=== PATIENT | female | born 1945 | race Caucasian/White ===

== ENCOUNTER → 2017-11-29 | Outpatient (CLI) | payer MEDICARE ==
[~2017-11-29] MED LIST: REGADENOSON 0.4 MG/5 ML SYRINGE ONE
== END | disposition home or self-care (01) ==
LOC: CFH 11:49
PROVIDERS: ATTEND Internal Medicine Cardiovascular Disease
DX: Z02.9 Encounter for administrative examinations, unspecified (principal)
CPT/HCPCS: J2785

== ENCOUNTER → 2017-12-01 | Outpatient (CLI) | payer MEDICARE | END | disposition home or self-care (01) | LOC: CFH 12:08 | PROVIDERS: ATTEND Internal Medicine Cardiovascular Disease | DX: I10 Essential (primary) hypertension (principal) | CPT/HCPCS: 78452; 93017; A9502; J2785 ==

== ENCOUNTER 2018-04-06 09:10 | Day surgery (SDC) | payer MEDICARE ==
[~2018-04-06] VITALS: Ht 165.1 cm; Wt 80.9 kg
[2018-04-06] MEDS ORDERED: SODIUM CHLORIDE 0.9% 1,000 ML IV ONE (09:41)
[2018-04-06] MEDS ORDERED: ACETYLCYSTEINE 600 MG CAPSULE PO STA (09:41)
[2018-04-06 09:53] VITALS: BP 175/84
[2018-04-06] MEDS ORDERED: ASPIRIN 325 MG TABLET EC PO ONE (10:00)
[2018-04-06] MEDS ORDERED: SODIUM BICARBONATE 8.4% 150 MEQ in DEXTROSE 5% 1,000 ML IV ONE (10:00)
[2018-04-06] MEDS ORDERED: ATOR40TA PO (10:14)
[2018-04-06] MEDS ORDERED: LEVO88TA4 PO (10:14)
[2018-04-06] MEDS ORDERED: ASPI-496 PO (10:14)
[2018-04-06] MEDS ORDERED: HYDR-3307 PO (10:14)
[2018-04-06] MEDS ORDERED: CALC1CAP8 PO (10:14)
[2018-04-06] MEDS ORDERED: UMEC62.5 IH (10:14)
[2018-04-06] MEDS ORDERED: GLIP5TAB10 PO (10:14)
[2018-04-06] MEDS ORDERED: ALLO100T30 PO (10:14)
[2018-04-06] MEDS ORDERED: ALBU1.25 NEB (10:14)
[2018-04-06] MEDS ORDERED: OMEP-110 PO (10:14)
[2018-04-06] MEDS ORDERED: GABA300C10 PO (10:14)
[2018-04-06] MEDS ORDERED: ALEN70TA5 PO (10:14)
[2018-04-06] MEDS ORDERED: LISI5TAB7 PO (10:14)
[2018-04-06] MEDS ORDERED: LORA10TA62 PO (10:14)
[2018-04-06] MEDS ORDERED: NITR0.6T4 SL (10:14)
[2018-04-06] MEDS ORDERED: CARV3.1212 PO (10:14)
[2018-04-06] MEDS ORDERED: ASPIRIN 325 MG TABLET EC ONE (10:32)
[2018-04-06] MEDS ORDERED: FENTANYL PF 100 MCG/2ML ONE (11:23)
[2018-04-06] MEDS ORDERED: MIDAZOLAM 1 MG/ML, 5ML ONE (11:23)
[2018-04-06] MEDS ORDERED: TICAGRELOR 90 MG TABLET ONE (11:23)
[2018-04-06] MEDS ORDERED: VERAPAMIL 2.5 MG/ML, 2ML ONE (11:23)
[2018-04-06] MEDS ORDERED: BIVALIRUDIN 250 MG ONE (11:23)
[2018-04-06] MEDS ORDERED: LIDOCAINE 1%, 50ML ONE (11:24)
[2018-04-06] MEDS ORDERED: HEPARIN 1,000 UNITS/ML, 10ML ONE (11:24)
[2018-04-06] MEDS ORDERED: SODIUM CHLORIDE 0.9% 1,000 ML IV SCH (12:18)
== END 2018-04-06 14:33 | disposition home or self-care (01) ==
LOC: CACL 09:10
PROVIDERS: ATTEND Internal Medicine Cardiovascular Disease
DX: I25.118 Atherosclerotic heart disease of native coronary artery with other forms of angina pectoris (principal); I10 Essential (primary) hypertension; J44.9 Chronic obstructive pulmonary disease, unspecified; Z87.891 Personal history of nicotine dependence; Z88.6 Allergy status to analgesic agent; Z88.5 Allergy status to narcotic agent
CPT/HCPCS: 71046; 93458; 99156; C1769; C1894; J1644; J2250; J3010; J3490; J7070; Q9967; J0583

== ENCOUNTER → 2018-04-21 | Outpatient (CLI) | payer MEDICARE ==
[~2018-04-21] MED LIST changes: +ALBU1.25 NEB; +ALEN70TA5 PO; +ALLO100T30 PO; +ASPI-496 PO; +ATOR40TA PO; +CALC1CAP8 PO; +CARV3.1212 PO; +GABA300C10 PO; +GLIP5TAB10 PO; +HYDR-3307 PO; +LEVO88TA4 PO; +LISI5TAB7 PO; +LORA10TA62 PO; +NITR0.6T4 SL; +OMEP-110 PO; -REGADENOSON 0.4 MG/5 ML SYRINGE ONE; +UMEC62.5 IH
== END | disposition home or self-care (01) ==
LOC: CVU 09:38
PROVIDERS: ATTEND Internal Medicine Cardiovascular Disease
DX: M79.662 Pain in left lower leg (principal); R60.9 Edema, unspecified; Z88.5 Allergy status to narcotic agent
CPT/HCPCS: 93970

== ENCOUNTER 2018-06-16 10:37 | Observation (INO) | payer MEDICARE ==
[2018-06-14 12:51] LABS: BASOPHILS # (AUTO) 0.03 x10^3/uL (0-0.1); BASOPHILS % (AUTO) 0 % (0-1); EOSINOPHILS # (AUTO) 0.22 x10^3/uL (0-0.4); EOSINOPHILS % (AUTO) 2 % (1-7); LYMPHOCYTES # (AUTO) 2.37 x10^3/uL (1-3.4); LYMPHOCYTES % (AUTO) 24 % (22-44); MD NO; MEAN CORPUSCULAR HEMOGLOBIN 33.2 pg (27.0-34.8); MEAN CORPUSCULAR HGB CONC 33.8 g/dL (32.4-35.8); MEAN CORPUSCULAR VOLUME 98.2 fL (80-100); MEAN PLATELET VOLUME 8.7 fL (7.4-10.4); MONOCYTES # (AUTO) 0.67 x10^3/uL (0.2-0.8); MONOCYTES % (AUTO) 7 % (2-9); NEUTROPHILS # (AUTO) 6.62 x10^3/uL (1.8-6.8); NEUTROPHILS % (AUTO) 67 % (42-75); PLATELET COUNT 274 x10^3/uL (130-400); RED BLOOD COUNT 3.93 x10^6/uL (3.82-5.3)
[2018-06-14 13:37] LABS: ANION GAP 10 mmol/L (5-15); CALCIUM 8.7 mg/dL (8.5-10.1); CHLORIDE 104 mmol/L (98-107)
[2018-06-14 13:38] LABS: CREATININE 1.64 mg/dL (0.55-1.02)
[~2018-06-16] VITALS: Ht 165.1 cm; Wt 85.7 kg
[~2018-06-16 10:37] MED LIST changes: +CHOL200024 PO
[2018-06-16 11:52] VITALS: BP 165/77
[2018-06-16] MEDS: SODIUM CHLORIDE 0.9% 1,000 ML IV SCH (11:57)
[2018-06-16] MEDS ORDERED: FENTANYL PF 100 MCG/2ML ONE ×2 (13:17→16:23)
[2018-06-16] MEDS ORDERED: PROTAMINE SULFATE 10 MG/ML, 25ML ONE (13:18)
[2018-06-16] MEDS ORDERED: MIDAZOLAM 1 MG/ML, 5ML ONE (13:18)
[2018-06-16] MEDS ORDERED: FLUMAZENIL 0.1 MG/1 ML, 5ML ONE (13:18)
[2018-06-16] MEDS ORDERED: NALOXONE 1 MG/ML, 2ML ONE (13:18)
[2018-06-16] MEDS ORDERED: NITROGLYCERIN 5 MG/ML, 10ML ONE (13:18)
[2018-06-16] MEDS ORDERED: HEPARIN 1,000 UNITS/ML, 10ML ONE (13:18)
[2018-06-16] MEDS ORDERED: CLOPIDOGREL 300 MG TABLET ONE (15:17)
[2018-06-16] MEDS ORDERED: HYDROcodone/APAP 10/325 MG TABLET ONE (16:29)
[2018-06-16] MEDS ORDERED: HYDROcodone/APAP 10/325 MG TABLET PO ONE (16:30)
[2018-06-16] MEDS ORDERED: FENTANYL PF 100 MCG/2ML IV ONE (16:30)
[2018-06-16] MEDS ORDERED: ALBUTEROL SULFATE 2.5 MG/3 ML NPPB PRN (20:00)
[2018-06-16] MEDS ORDERED: NITROGLYCERIN 0.4 MG BOTTLE (25 TABS) SL PRN (20:00)
[2018-06-16] MEDS ORDERED: HYDROcodone/APAP 10/325 MG TABLET PO PRN (20:00)
[2018-06-16] MEDS ORDERED: ALBUTEROL SULFATE 2.5 MG/3 ML NPPB SCH (20:00)
[2018-06-16] MEDS ORDERED: HYDROcodone/APAP 10/325 MG TABLET PO SCH (21:00)
[2018-06-16] MEDS: ATORVASTATIN 40 MG TABLET PO SCH (22:15)
[2018-06-16] MEDS: GABAPENTIN 300 MG CAPSULE PO SCH (22:15)
[2018-06-17 00:14] VITALS: BP 142/59
[2018-06-17 05:09] LABS: ANION GAP 8 mmol/L (5-15); CHLORIDE 107 mmol/L (98-107)
[2018-06-17 05:10] LABS: CREATININE 1.07 mg/dL (0.55-1.02)
[2018-06-17 05:16] LABS: BASOPHILS # (AUTO) 0.03 x10^3/uL (0-0.1); BASOPHILS % (AUTO) 0 % (0-1); EOSINOPHILS # (AUTO) 0.25 x10^3/uL (0-0.4); EOSINOPHILS % (AUTO) 3 % (1-7); LYMPHOCYTES # (AUTO) 2.19 x10^3/uL (1-3.4); LYMPHOCYTES % (AUTO) 30 % (22-44); MD NO; MEAN CORPUSCULAR HEMOGLOBIN 33.6 pg (27.0-34.8); MEAN CORPUSCULAR HGB CONC 34.4 g/dL (32.4-35.8); MEAN CORPUSCULAR VOLUME 97.8 fL (80-100); MEAN PLATELET VOLUME 8.6 fL (7.4-10.4); MONOCYTES # (AUTO) 0.62 x10^3/uL (0.2-0.8); MONOCYTES % (AUTO) 9 % (2-9); NEUTROPHILS # (AUTO) 4.24 x10^3/uL (1.8-6.8); NEUTROPHILS % (AUTO) 58 % (42-75); PLATELET COUNT 219 x10^3/uL (130-400); RED BLOOD COUNT 3.19 x10^6/uL (3.82-5.3); RED CELL DISTRIBUTION WIDTH 13.6 % (9.6-15.2)
[2018-06-17] MEDS ORDERED: OMEPRAZOLE 20 MG CAPSULE.DR PO SCH (06:00)
[2018-06-17] MEDS ORDERED: ASPIRIN 81 MG TABLET EC PO SCH (06:00)
[2018-06-17] MEDS ORDERED: LEVOTHYROXINE 88 MCG TABLET PO SCH (06:00)
[2018-06-17 07:02] VITALS: BP 140/68
[2018-06-17] MEDS: GABAPENTIN 300 MG CAPSULE PO SCH (08:13)
[2018-06-17] MEDS: ATORVASTATIN 40 MG TABLET PO SCH (08:14)
[2018-06-17] MEDS ORDERED: CLOP75TA PO (08:26)
[2018-06-17] MEDS ORDERED: LISINOPRIL 5 MG TABLET PO SCH (09:00)
[2018-06-17] MEDS ORDERED: CALCIUM/VITAMIN D3 250-125 TABLET PO SCH (09:00)
[2018-06-17] MEDS ORDERED: ALLOPURINOL 100 MG TABLET PO SCH (09:00)
[2018-06-17] MEDS ORDERED: CHOLECALCIFEROL 1,000 UNIT TABLET PO SCH (09:00)
[2018-06-17] MEDS ORDERED: CLOPIDOGREL 75 MG TABLET PO SCH (09:00)
[2018-06-17] MEDS: SODIUM CHLORIDE 0.9% 1,000 ML IV SCH (10:10)
[2018-06-23] MEDS ORDERED: ALENDRONATE 70 MG TABLET PO SCH (06:30)
== END 2018-06-17 11:40 | disposition home or self-care (01) ==
LOC: OUT 10:37 → 4NOR 16:06 → OUT 17:14 → 4NOR 17:14
PROVIDERS: ADMIT Internal Medicine Cardiovascular Disease; ATTEND Internal Medicine Cardiovascular Disease
DX: I70.212 Atherosclerosis of native arteries of extremities with intermittent claudication, left leg (principal)
CPT/HCPCS: 36415; 37224; 75630; 75716; 80048; 85025; 96374; 99156; 99157; C1725; C1751; C1769; C1894; G0378; J1644; J2250; J3010; J7030; J2720; J2310

== ENCOUNTER 2018-08-17 09:46 | Day surgery (SDC) | payer MEDICARE ==
[~2018-08-17] VITALS: Ht 165.1 cm; Wt 83.5 kg
[~2018-08-17 09:46] MED LIST changes: -ALEN70TA5 PO; +ALEN70TA6 PO; +CLOP75TA PO
[2018-08-17 10:38] VITALS: BP 119/80
[2018-08-17] MEDS ORDERED: LIDOCAINE-MPF 1%, 5ML ONE (12:02)
[2018-08-17] MEDS ORDERED: MIDAZOLAM 1 MG/ML, 5ML ONE (12:25)
[2018-08-17] MEDS ORDERED: NITROGLYCERIN 5 MG/ML, 10ML ONE (12:25)
[2018-08-17] MEDS ORDERED: NALOXONE 1 MG/ML, 2ML ONE (12:25)
[2018-08-17] MEDS ORDERED: PROTAMINE SULFATE 10 MG/ML, 25ML ONE (12:25)
[2018-08-17] MEDS ORDERED: FLUMAZENIL 0.1 MG/1 ML, 5ML ONE (12:25)
[2018-08-17] MEDS ORDERED: FENTANYL PF 100 MCG/2ML ONE (12:25)
[2018-08-17] MEDS ORDERED: HEPARIN 1,000 UNITS/ML, 10ML ONE (12:25)
[2018-08-17] MEDS ORDERED: VISIPAQUE 270 MG/ML, 150ML BOTTLE ONE (12:30)
== END 2018-08-17 16:05 | disposition home or self-care (01) ==
LOC: OUT 09:46
PROVIDERS: ATTEND Internal Medicine Cardiovascular Disease
DX: I70.211 Atherosclerosis of native arteries of extremities with intermittent claudication, right leg (principal); I12.9 Hypertensive chronic kidney disease with stage 1 through stage 4 chronic kidney disease, or unspecified chronic kidney disease; E11.22 Type 2 diabetes mellitus with diabetic chronic kidney disease; N18.9 Chronic kidney disease, unspecified; Z88.6 Allergy status to analgesic agent; Z88.5 Allergy status to narcotic agent; Z79.84 Long term (current) use of oral hypoglycemic drugs
CPT/HCPCS: 37224; 75630; 99156; 99157; C1725; C1760; C1769; C1894; J1644; J2250; J3010; Q9966; J2720; J2310

== ENCOUNTER 2021-03-10 11:21 | Day surgery (SDC) | payer MEDICARE ==
[~2021-03-10] VITALS: Ht 165.1 cm; Wt 80.2 kg
[~2021-03-10 11:21] MED LIST changes: -ALEN70TA6 PO; +ALEN70TA77 PO; +HYDR-3248 PO; -HYDR-3307 PO; +LORA-59 PO; -LORA10TA62 PO
[2021-03-10 12:34] VITALS: BP 125/73
[2021-03-10] MEDS ORDERED: OMEP10CA5 PO (12:43)
[2021-03-10] MEDS ORDERED: ASCO100018 PO (12:43)
[2021-03-10 12:48] LABS: INTERNATIONAL NORMALIZED RATIO 1.08 (0.93-1.1); PROTHROMBIN TIME 11.5 Seconds (9.6-11.5)
[2021-03-10] MEDS ORDERED: NALOXONE 1 MG/ML, 2ML ONE (14:00)
[2021-03-10] MEDS ORDERED: MIDAZOLAM 1 MG/ML, 5ML ONE (14:00)
[2021-03-10] MEDS ORDERED: FLUMAZENIL 0.1 MG/1 ML, 5ML ONE (14:00)
[2021-03-10] MEDS ORDERED: FENTANYL PF 100 MCG/2ML ONE (14:00)
== END 2021-03-10 16:31 | disposition home or self-care (01) ==
LOC: OUT 11:21
PROVIDERS: ATTEND Internal Medicine Nephrology
DX: E11.22 Type 2 diabetes mellitus with diabetic chronic kidney disease (principal); I12.9 Hypertensive chronic kidney disease with stage 1 through stage 4 chronic kidney disease, or unspecified chronic kidney disease; N18.4 Chronic kidney disease, stage 4 (severe); D63.1 Anemia in chronic kidney disease; D47.2 Monoclonal gammopathy; J44.9 Chronic obstructive pulmonary disease, unspecified; E03.9 Hypothyroidism, unspecified; M10.9 Gout, unspecified; M06.9 Rheumatoid arthritis, unspecified; E78.00 Pure hypercholesterolemia, unspecified; Z79.890 Hormone replacement therapy; Z79.891 Long term (current) use of opiate analgesic; Z79.899 Other long term (current) drug therapy; Z87.891 Personal history of nicotine dependence; Z88.5 Allergy status to narcotic agent; Z88.8 Allergy status to other drugs, medicaments and biological substances; Z82.49 Family history of ischemic heart disease and other diseases of the circulatory system
CPT/HCPCS: 36415; 50200; 77012; 85610; 88300; 99156; 99157; J2250; J3010; J2310